=== PATIENT | male | born 1995 | race Caucasian/White ===

== ENCOUNTER → 2017-08-02 | Outpatient (CLI) | payer BC ==
[~2017-08-02] MED LIST: AMOXICILLIN 8751 TAB PO; MEDROL 4MG DOSPA4 MG PO; ZANTAC 150MG T150 MG PO
== END ==
LOC: MHCPAIN 14:21
DX: G89.29 Other chronic pain (principal); M54.12 Radiculopathy, cervical region; R51 Headache; G24.3 Spasmodic torticollis
CPT/HCPCS: G0463

== ENCOUNTER → 2017-08-13 | Outpatient (CLI) | payer BC | LOC: COL.RAD 13:55 | DX: J32.0 Chronic maxillary sinusitis (principal); J32.3 Chronic sphenoidal sinusitis; G24.3 Spasmodic torticollis | CPT/HCPCS: A9585 ==

== ENCOUNTER 2018-06-10 18:02 | Day surgery (SDC) | payer OTHER ==
[~2018-06-10] VITALS: Ht 175.3 cm; Wt 70.5 kg
[2018-06-10 18:52] LABS: BASO # 0.1 (0.0-0.2); BASO % 0.5 % (0.0-2.0); EOS % 0.1 % (0-4.0); GRAN # 8.9 (1.4-6.5); GRAN % 77.9 % (42.2-75.2); HEMATOCRIT 42.1 % (42.0-52.0); HEMOGLOBIN 14.6 g/dl (13.5-18.0); LYMPH # 1.5 (1.2-3.4); LYMPH % 13.1 % (20.0-51.0); MEAN CELL VOLUME 89 fl (80.0-100.0); MEAN CORPUSCULAR HEMOGLOBIN 31 pg (27.0-31.0); MEAN CORPUSCULAR HGB CONC 35 g/dl (33.0-37.0); MEAN PLATELET VOLUME 9.5 fl (7.4-10.4); MONO # 0.9 (0.1-0.6); PLATELET COUNT 336 K/mm3 (130-400); RED BLOOD COUNT 4.73 M/mm3 (4.20-5.60); REDCELL DISTRIBUTION WIDTH-CV 12.2 % (11.5-14.5)
[2018-06-10 19:03] LABS: ALBUMIN 4.4 gm/dL (3.5-5.0); BILIRUBIN,TOTAL 0.8 mg/dL (0.0-1.0); C-REACTIVE PROTEIN 4.6 mg/dL (0.0-0.9); CALCIUM 9.4 mg/dL (8.4-10.2); CREATININE, serum 0.87 mg/dL (0.66-1.25); POTASSIUM 3.8 mmol/L (3.4-5.0); TOTAL PROTEIN 7.3 gm/dL (6.4-8.2)
[2018-06-10 22:30] VITALS: BP 114/54; PULSE 57
[2018-06-10 22:45] VITALS: BP 103/52; PULSE 73
[2018-06-10 23:00] VITALS: BP 115/61; PULSE 52
[2018-06-10 23:15] VITALS: BP 107/53; PULSE 58
[2018-06-10 23:45] VITALS: BP 111/57; PULSE 60
[2018-06-11 00:15] VITALS: BP 120/59; PULSE 60
[2018-06-11 01:15] VITALS: BP 118/68; PULSE 83
[2018-06-11 02:15] VITALS: BP 124/77; PULSE 83
[2018-06-11 04:20] VITALS: BP 107/50; PULSE 113; TEMP 98.2
[2018-06-11 08:04] VITALS: BP 111/56; PULSE 89; TEMP 98.7
[2018-06-11] MEDS ORDERED: NORCO 325 MG-51 TAB PO (08:56)
== END 2018-06-11 10:43 | disposition home or self-care (01) ==
LOC: COL.ER 18:02 → SURG 20:29 → SDCO 20:29
PROVIDERS: Physician Assistant
DX: K35.80 Unspecified acute appendicitis (principal)
CPT/HCPCS: OP; J1170; J1885; J2405; J2543; J2704; J3010; J7030; Q9967